=== PATIENT | male | born 1940 | race Caucasian/White ===

== ENCOUNTER → 2024-01-09 | Emergency (ER) | payer OTHER ==
[~2024-01-09] MED LIST: NA CHLORIDE 0.9% 1,000 ML ONE
--- OUTSIDE RECORDS SUMMARY | 2024-01-09 10:51 | XMS REPORT | Clinical Summary ---
Author Name Unknown Organization [facility] [place] Address [address] [place] [address] Care Team Providers Care Concrete Curer Name Role Phone Card, Rashawn Barbour MD Unavailable [phone] John Cardenas MD, Sarabjit Nieto Primary Care Provider [phone] Thierno Booth MD Unavailable Bethel Mayfield MD Unavailable [phone] Darwin Somers MD Unavailable Alberto Broderick MD Unavailable Allergies Active Allergy Reactions Criticality Noted Date Comments Terbinafine 02/22/2018 Patient unsure of reaction Medications Medication Sig Dispensed Refills Start Date End Date Status HUMULIN 70/30 U-100 KWIKPEN 100 unit/mL (70-30) insulin pen Inject 80 Units under the skin daily. Pt will start taking 80units in the morning and 50 units at night per Dr. Cortez (IMPAC) 05/04/19. 1 05/04/2019 Active metFORMIN (GLUCOPHAGE) 500 mg tablet Take 2 tablets (1,000 mg) by mouth twice daily. 0 Active atorvastatin (LIPITOR) 40 mg tablet Take 1 tablet by mouth daily. 0 Active indapamide (LOZOL) 1.25 mg tablet Take 1 tablet (1.25 mg) by mouth daily. 0 Active clotrimazole-betamet h dip-zinc 1-0.05-20 % cmpk Apply 1 application topically to affected area(s) as needed. 0 Active magnesium 250 mg tab Take 1 tablet by mouth 3 (three) times a week Tuesday, Tuesday and Tuesday. 0 Active artificial tears, carboxymethylcellulo se, (REFRESH PLUS) 0.5% ophthalmic solutionIndications: Mass of parotid gland,Renal stone,Elevated cholesterol with elevated triglycerides,Hypert ension,Dyslipidemia Administer 2 drops into the left eye every 2 (two) hours. 70 each 10 04/18/2018 Active cholecalciferol, vitamin D3, 50 mcg (2,000 unit) capsule Take by mouth daily. 0 Active BD ULTRA-FINE ALIX PEN NEEDLE 32 gauge x 5/32" ndle U BID UTD. 3 04/30/2019 Active ferrous sulfate 325 mg (65 mg elemental iron per tablet) tablet Take by mouth daily. 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 Above the surgical site, smaller evaluated with air bubbles is identified. 2. No evidence of left scroll shear operator space involvement. 3. No recurrence at the left parotidectomy site. 4. No adenopathy. 03/09/2018: STRESS TEST: IMPRESSION: 1. No ischemia after exercise stress to an adequate cardiac workload. 2. Calculated left ventricle ejection fraction of 63% 03/09/2018: ECHO: EF 58%. The atrial septum is aneurysmal. Trace MR Other acquired deformity of head 01/11/2019 Overview: Added automatically from request for surgery [id number] Mass of parotid gland 04/03/2018 Overview: Added automatically from request for surgery [id number] Hypertension 03/08/2018 Overview: BP Readings from Last 3 Encounters: 01/11/20 149/84 12/07/19 (!) 164/76 09/07/19 141/78 Dyslipidemia 03/08/2018 Diabetes mellitus Overview: HgbA1c 7.5 06/2018 Renal stone Overview: 2 stones don't remember date Elevated cholesterol with elevated triglycerides Encounters Date Type Department Care Team Description 06/08/2023 11:15 AM CDT Follow-Up MD [facility] in [facility] [address] [place] [address] Sarabjit Lopez Jr., MD 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 7:15 AM CDT Ancillary Procedure Diagnostic Imaging in [facility] [id number] [place] [address] [facility] [address] [place] [address] Lyn Rueda PA 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 Travel after 01/09/2023 Surgical History Surgery Date Site/Laterality Comments COLONOSCOPY 11/14/2011 - 11/13/2012 KNEE SURGERY 11/14/2007 - 11/13/2008 Right arthroscopic EXTRACORPOREAL SHOCK WAVE LITHOTRIPSY 1990s NV EXC PRTD DAVID/PRTD GLND LAT DSJ&PRSRV FACIAL NR 04/17/2018 Neck/Left Procedure: EXCISION OF LATERAL LOBE OF PAROTID GLAND WITH DISSECTION AND PRESERVATION OF FACIAL NERVE; Surgeon: Sarabjit Lopez Jr., MD; Location: MAIN OR; Service: [facility] - HEAD & NECK SURGERY NV REPAIR BROW PTOSIS 05/07/2019 Forehead/Left Procedure: REPAIR OF BROW PTOSIS (SUPRACILIARY, MID-FOREHEAD OR CORONAL APPROACH); Surgeon: Bethel Mayfield MD; Location: MAIN OR; Service: OPHTHALMOLOGY Medical devices from this surgery are in the Medical Devices section. NV CANTHOPLASTY 05/07/2019 Eyelid/Left Procedure: RECONSTRUCTION OF CANTHUS; Surgeon: Bethel Mayfield MD; Location: MAIN OR; Service: OPHTHALMOLOGY Medical devices from this surgery are in the Medical Devices section. NV CORRECTION LID RETRACTION 05/07/2019 Eyelid/Left Procedure: CORRECTION OF LID RETRACTION; Surgeon: Bethel Mayfield MD; Location: MAIN OR; Service: OPHTHALMOLOGY Medical devices from this surgery are in the Medical Devices section. NV CONSTJ INTERMARGIN ADHES/TARSORRH/CANTHORRHAPY 05/07/2019 Eyelid/Left Procedure: CONSTRUCTION OF INTERMARGINAL ADHESIONS, MEDIAN TARSORRHAPHY, OR CANTHORRHAPHY;; Surgeon: Bethel Mayfield MD; Location: MAIN OR; Service: OPHTHALMOLOGY Medical devices from this surgery are in the Medical Devices section. NV GRAFT FACIAL NERVE PARALYSIS FREE FASCIAL GRAFT 05/07/2019 Thigh/Right Procedure: FASCIAL GRAFT; Surgeon: Darwin Somers MD; Location: MAIN OR; Service: PLS - PLASTIC SURGERY Medical devices from this surgery are in the Medical Devices section. NV DEBRIDEMENT OPEN WOUND FIRST 20 SQ CM/< 08/10/2019 Face/Left Procedure: I&D OF WOUND; Surgeon: Darwin Somers MD; Location: MAIN OR; Service: PLS - PLASTIC SURGERY NV REPAIR COMPLEX F/C/C/M/N/AX/G/H/F 1.1-2.5 CM 08/13/2019 Face/Left Procedure: COMPLEX REPAIR OF CHEEK(S) x3 (9cm in total); Surgeon: Darwin Somers MD; Location: MAIN OR; Service: PLS - PLASTIC SURGERY NV CORRJ LAGOPHTHALMOS IMPLTJ UPR EYELID LID LOAD 01/14/2020 Eyelid/Left Procedure: CORRECTION OF LAGOPHTHALMOS WITH IMPLANTATION OF UPPER EYELID LID LOAD; Surgeon: Bethel Mayfield MD; Location: MAIN OR; Service: OPHTHALMOLOGY Medical devices from this surgery are in the Medical Devices section. Medical History Medical History Date Comments Renal stone 2 stones don't r emember date Diabetes mellitus 1990s pt reports micheal t insulin was started about 10-12 yrs ago. pt reports that AM glc usually 80s-150, before dinner in 110-120s Eczema 2000+- Hyperlipidemia 2002 Hypertension 2002 pt does not chec k BP Murmur 2012 Cancer Family History Medical History Relation Name Comments -Lymphoma Brother 1 Km liang [facility] Stroke Brother 1 Km liang -Skin (not Melanoma) Brother 2 gene matula Diabetes Brother 2 gene matula Heart disease Brother 2 gene matula arrythmia sp a blation Hypertension Father Coronary artery disease Mother in h er 60s Hypertension Mother Stroke Mother VTE Mother DVTs Bleeding Disorder Neg Hx Glaucoma Neg Hx Macular degeneration Neg Hx Relation Name Status Comments Brother 1 Km liang Brother 2 gene matula Father Mother Social History Tobacco Use Types Packs/Day Years Used Date Smoking Tobacco: Former Cigars Smokeless Tobacco: Former Chew Quit: 11/14/1986 Comments:smoked occassionall y. quit long ago Alcohol Use Standard Drinks/Week Comments No 0 (1 standard drink = 0.6 oz pur e alcohol) Sex and Gender Information Value Date Recorded Sex Assigned at Male 03/24/2019 9:17 AM CDT Gender Identity Male 03/24/2019 9:17 AM CDT Sexual Orientation Straight 03/24/2019 9: 17 AM CDT Job Start Date Occupation Industry Not on file Not on file Not on file Obstetrics History Last Filed Vital Signs Vital Sign Reading Time Taken Comments Blood Pressure 163/75 06/08/2023 9:58 AM CDT Pulse 86 06/08/2023 9:58 AM CDT Temperature 36.7 C (98.1 F) 06/08/2023 9:58 AM CD T Respiratory Rate 18 06/08/2023 9:58 AM CDT Oxygen Saturation - - Inhaled Oxygen Concentration - - Weight 98.3 kg (216 lb 11.4 oz) 06/08/2023 9:58 AM CDT Height - - Body Mass Index 31.73 09/04/2019 1:32 PM CDT Plan of Treatment Health Maintenance Due Date Last Done Comments COVID-19 Vaccination ( season) 2023 01/10/2021, 12/13/2020 Medical Devices Implanted Type Area Kitchen Runner Device Identifier Shelf Expiration Date Model / Serial / Lot Weight Gold Eyelid Thin 1.2 Ll - [id number] Implanted:Qty : 1 on 01/14/2020 by Bethel Mayfield MD at [facility] NeuroEarEye Left: Eyelid MEDDEV NATALIO 10/08/2022 [id number] / / [id number] Enduragen Collagen Implant Implanted:Qty : 1 on 05/07/2019 by Bethel Mayfield MD at [facility] Tissue Left: Jhony Telensius 07/14/2023 [id number] / / [id number] Procedures Procedure Name Priority Date/Time Associated Diagnosis Comments CT SOFT TISSUE NECK W CONTRAST Routine 06/08/2023 8:47 AM CDT Warthin's tumor of parotid gland POC CREATININE Routine 06/08/2023 7:51 AM CDT after 01/09/2023 Results * CT Soft Tissue Neck with Contrast (06/08/2023 8:47 AM CDT) Anatomical Region Laterality Modality Neck Computed Tomogra phy 06/08/2023 11:5 5 AM CDT Impressions 06/08/2023 12:16 PM CDT 1. Stable treatment changes of the neck includes left sided parotidectomy. No visualized recurrent lesion in the parotidectomy bed. 2. No suspicious masses or lymph nodes. ACTIONABLE ITEMS/RECOMMENDATIONS: None. Narrative 06/08/2023 12:16 PM CDT FULL RESULT: Examination: CT SOFT TISSUE NECK W CONTRAST on 06/08/2023 8:47 AM. 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 TECHNIQUE: CT neck with IV contrast was performed. FINDINGS: There are stable postsurgical changes of left-sided parotidectomy. There are no visualized circumscribed nodules within the parotid bed to suggest recurrent Warthin's tumor or other lesion. Lymph nodes: No cervical lymphadenopathy is present. Other findings: The upper aerodigestive tract is unremarkable. The major salivary glands are unremarkable. A stable 9 mm nodule is seen in the right lobe of the thyroid. Otherwise, the thyroid gland is normal is appearance. The visualized paranasal sinuses are predominantly clear. The cervical arteries and veins are patent. The visualized brain parenchyma is unremarkable. The visualized lung apices are clear. Procedure Note Servando Barlow MD - 06/08/2023 FULL RESULT: Examination: CT SOFT TISSUE NECK W CONTRAST on 06/08/2023 8:47 AM. CLINICAL HISTORY: Warthin's tumor of parotid gland INDICATION: surveillance, hx warthin's tumor of left parotid s/p [id number] COMPARISON: CT the neck 06/09/2022. TECHNIQUE: CT neck with IV contrast was performed. FINDINGS: There are stable postsurgical changes of left-sided parotidectomy. Thereare no visualized circumscribed nodules within the parotid bed to suggestrecurrent Warthin's tumor or other lesion. Lymph nodes: No cervical lymphadenopathy is present. Other findings: The upper aerodigestive tract is unremarkable. The major salivary glands are unremarkable. A stable 9 mm nodule is seen in the right lobe of the thyroid. Otherwise,the thyroid gland is normal is appearance. The visualized paranasal sinuses are predominantly clear. The cervical arteries and veins are patent. The visualized brain parenchyma is unremarkable. The visualized lung apices are clear. IMPRESSION: 1. Stable treatment changes of the neck includes left sided parotidectomy.No visualized recurrent lesion in the parotidectomy bed. 2. No suspicious masses or lymph nodes. ACTIONABLE ITEMS/RECOMMENDATIONS: None. Lyn CARTER IM CT ORDDacia ANN * (ABNORMAL) POC Creatinine (06/08/2023 7:51 AM CDT) POC Crea 1.4(H) 0.6 - 1.3 mg/dL POC [facility] Comment: Medications, especially hydroxyurea or supplements, such as ascorbate, can interfere with test results causing a falsely and significantly higher result than expected. If a problem is suspected with a patient's result, a sample should be sent to the laboratory for confirmatory testing. Method description: The i-STAT is an analyzer used for in vitro quantification of various analytes in whole blood. The device uses a single disposable cartridge which contains microfabricated sensors, a calibration solution, fluidics system, and a waste chamber. Each test cartridge contains chemically sensitive biosensors on a silicon chip that are configured to perform specific tests. The microfabricated sensors measure analyte concentration by an electrochemical assay. POC EGFR 50(L) >=60 mL/min/1. 73 sq. m POC [facility] Comment: The eGFRcr is calculated with the 2020 CKD-EPI creatinine equation using creatinine, patient's age, and sex for adults 18 years of age and older. Other factors, especially muscle mass, may affect accuracy and need to be considered. According to the Kidney Disease: Improving Global Outcomes (KDIGO) CKD Work Group 2012 Clinical Practice Guideline, chronic kidney disease (CKD) is defined as the abnormalities of kidney structure or function, present for more than 3 months, with implications for health. CKD should be classified by cause, GFR category, and albuminuria category. KDIGO guidelines provide the following GFR categories Stage Description GFR mL/min/1.73 m2 G1* Normal or high >= 90 G2* Mildly decreased 60-89 G3a Mildly to moderately decreased 45-59 G3b Moderately to severely decreased 30-44 G4 Severely decreased 15-29 G5 Kidney failure <15 *In the absence of evidence of kidney damage, neither G1 nor G2 fulfill criteria for CKD. POC Clean Dev Yes POC [facility] Performing Lab DI [place] POC [facility] Comment:Diagnostic Imaging W est 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 Advance Directives: Living Will 03/27/2018 Directive to Physici ans and Family or Surrogates-Living Will Latest Code Status on File Code Status Date Activated Date Inactivated Comments Full Code 08/10/2019 2:58 PM 08/15/2019 2:11 PM Code Status History Code Status Date Activated Date Inactivated Comments Full Code 05/07/2019 7:56 PM 05/07/2019 11:58 PM Full Code 05/07/2019 9:21 AM 05/07/2019 5:50 PM Full Code 04/17/2018 12:55 PM 04/18/2018 2:48 PM Care Teams Concrete Curer Relationship Specialty Start Date End Date [place], [place] [id number] [phone] PCP - External Referring Otolaryngology 02/09/18 Sarabjit Lopez Jr., MD [address] [place] [id number] PCP - General Head and Neck Surgery 02/13/18 Thierno Booth MD [address] [address] PCP - External Primary Care Provider Family Practice 02/22/18 Bethel Mayfield MD [address] [place] [id number] Consulting Physician Ophthalmology 05/08/18 Darwin Somers MD [address] [place] [id number] Consulting Physician Plastic and Reconstructive Surgery 08/08/18 Alberto Broderick MD [address] [place] [id number] Consulting Physician Internal Medicine 03/08/18
[2024-01-09 11:25] LABS: Absolute Lymphocytes (CBC) 1.6 K/uL (0.7-4.9); Hematocrit 39.6 % (39.6-49.0); Lymphocytes % 21.9 % (15.3-44.8); MCV 71.7 fL (80-100); MPV 7.6 fL (7.6-11.3); Platelets 231 thou/uL (152-406); RBC Red Blood Cell Count 5.52 M/uL (4.33-5.43)
[2024-01-09 11:41] LABS: Albumin 3.7 g/dL (3.4-5.0); Bilirubin Total 0.8 mg/dL (0.2-1.0); Potassium 4.2 mEq/L (3.5-5.1); Protein, Total 7.2 g/dL (6.4-8.2)
--- NOTE | 2024-01-09 12:24 | RAD REPORT ---
EXAM DESCRIPTION: CTAbdomen Pelvis W Contrast - 01/09/2024 12:05 pm CLINICAL HISTORY: ABD PAIN COMPARISON: No comparisons TECHNIQUE: CT of the abdomen and pelvis was performed. All CT scans are performed using dose optimization technique as appropriate and may include automated exposure control or mA/KV adjustment according to patient size. FINDINGS: Lower chest: Aortic root and aortic valve calcifications. Coronary artery calcifications. Liver: Hepatic steatosis. No focal mass. Biliary: Cholelithiasis. No CT evidence of acute cholecystitis. Stomach: No significant focal abnormality. Duodenum: No significant focal abnormality. Pancreas: Atrophic pancreas but no mass or pancreatic ductal dilatation. Spleen: No significant abnormality. Adrenal: No suspicious lesions. Kidney/ureter: No hydronephrosis. No renal calculi. Too small to characterize and/or benign appearing renal lesions are noted. Retroperitoneum: No retroperitoneal adenopathy. Vascular: No aneurysm. Bowel: Diverticulosis without diverticulitis. No bowel obstruction. No appendicitis.. Peritoneum: No ascites or free air. Bladder: Grossly unremarkable. Reproductive: Prostatomegaly . Bones: No acute fracture. Multilevel degenerative changes are present in the spine. Other: n/a IMPRESSION: No acute intra-abdominal or pelvic finding. Cholelithiasis without CT evidence of acute cholecystitis. No appendicitis.
--- NOTE | 2024-01-09 13:52 | RAD REPORT ---
EXAM DESCRIPTION: US - Abdomen Exam Limited - 01/09/2024 1:17 pm CLINICAL HISTORY: Abdominal pain. COMPARISON: January 09, 2024 CT FINDINGS: Multiple gallstones. Gallbladder wall not thickened The biliary tree is normal caliber. IMPRESSION: Cholelithiasis without evidence cholecystitis
--- NOTE | 2024-01-09 14:00 | EDPHYS ---
Physician Documentation [facility] Name: Garrick Pantoja Age: 83 yrs Sex: Male : 1940 Arrival Date: 01/09/2024 Time: 10:48 Bed 18 Private MD: RADHA Physician Dimas Bermudez HPI: 01/09 11:04 This 83 yrs old Male presents to ER via Unassigned with complaints of Abdominal Pain. sb4 11:04 The patient presents with abdominal pain in the right upper quadrant. Onset: The sb4 symptoms/episode began/occurred 2 week(s) ago. The symptoms do not radiate. Associated signs and symptoms: none. Modifying factors: The symptoms are alleviated by remaining still, the symptoms are aggravated by movement. The patient has not experienced similar symptoms in the past. The patient has not recently seen a physician. worsening RUQ pain x 2 weeks. no known history of gallstones. no reported nausea, vomiting, diarrhea, fever. Historical: - Allergies: 14:13 No Known Allergies; me1 - PMHx: 11:39 diabetes mellitus; Hypertensive disorder; Hypercholesterolemia; nj1 - PSHx: 11:39 plastic surgery on face; tumor removal; nj1 - Immunization history:: Client reports receiving the 2nd dose of the Covid vaccine. - Social history:: Smoking status: Patient denies any tobacco usage or history of. ROS: 11:04 Constitutional: Negative for fever, chills, and weight loss, sb4 11:04 Abdomen/GI: Positive for abdominal pain, 11:04 All other systems are negative, Exam: 11:04 Constitutional: This is a well developed, well nourished patient who is awake, alert, sb4 and in no acute distress. Head/Face: Normocephalic, atraumatic. Eyes: Extra-ocular motions intact. Periorbital areas with no swelling, redness, or edema. ENT: Mucous membranes moist. Cardiovascular: Regular rate and rhythm with a normal S1 and S2. Respiratory: Lungs have equal breath sounds bilaterally, clear to auscultation and percussion. No rales, rhonchi or wheezes noted. No increased work of breathing, no retractions or nasal flaring. Skin: Warm, dry with normal turgor. Normal color with no rashes, no lesions, and no evidence of cellulitis. MS/ Extremity: Pulses equal, no cyanosis. Neurovascular intact. Full, normal range of motion. Neuro: Awake and alert, GCS 15, oriented to person, place, time, and situation. Motor strength 5/5 in all extremities. Sensory grossly intact. 11:04 Abdomen/GI: Inspection: abdomen appears normal, Bowel sounds: normal, Palpation: soft, mild abdominal tenderness, in the right upper quadrant, Vital Signs: 10:57 BP 164 / 72; Pulse 89; Resp 18; Temp 97.8(O); Pulse Ox 97% on R/A; Weight 95.71 kg; nj1 Height 5 ft. 10 in. ; Pain 2/10; 11:00 BP 155 / 76; Pulse 79; Resp 16; Pulse Ox 97% ; me1 12:07 BP 145 / 74; Pulse 76; Resp 16; Pulse Ox 99% on R/A; me1 13:00 BP 140 / 71; Pulse 70; Resp 16; Pulse Ox 99% on R/A; me1 13:00 BP 137 / 68; Pulse 73; Resp 16; Pulse Ox 99% on R/A; me1 10:57 Body Mass Index 30.28 (95.71 kg, 177.8 cm) nj1 10:57 Pain Scale: Adult nj1 MDM: 10:57 Patient medically screened. sb4 11:04 Differential diagnosis: cholecystitis, Cholelithiasis, non-specific abd pain. sb4 13:59 Data reviewed: vital signs, nurses notes, lab test result(s), and as a result, I will sb4 discharge patient. Consideration of Admission/Observation Escalation of care including admission/observation considered. Historians other than the Patient: Spouse/Significant Other: . Care significantly affected by the following chronic conditions: Diabetes, Hypertension. Counseling: I had a detailed discussion with the patient and/or guardian regarding the historical points, exam findings, and any diagnostic results supporting the discharge/admit diagnosis, lab results, radiology results, the need for outpatient follow up, a general surgeon. 01/09 11:04 Order name: CBC with Diff; Complete Time: 11: sb4 01/09 11:04 Order name: CMP; Complete Time: 11: sb4 01/09 11:04 Order name: Lipase; Complete Time: sb4 01/09 11:04 Order name: CT Abd/Pelvis - IV Contrast Only; Complete Time: 12:27 sb4 01/09 12:27 Order name: US Abdomen Limited; Complete Time: 13:53 sb4 01/09 11:04 Order name: IV Saline Lock; Complete Time: 11:15 sb4 01/09 11:04 Order name: Labs collected and sent; Complete Time: 11:15 sb4 Administered Medications: 12:14 Drug: NS 0.9% IV 1000 ml IV at 1 bolus Per protocol; 1000 mL bolus Route: IV; Rate: 1 me1 bolus; Site: right antecubital; 13:59 Follow up: IV Status: Completed infusion me1 Disposition Summary: 01/09/24 14:00 Discharge Ordered Notes: Location: Home sb4 Problem: an ongoing problem sb4 Symptoms: are unchanged sb4 Condition: Stable sb4 Diagnosis - Other cholelithiasis without obstruction sb4 Followup: sb4 - With: Mike Guadarrama MD - When: 2 - 3 days - Reason: Recheck today's complaints, Re-evaluation by your physician Followup: sb4 - With: Edward Ferrer MD - When: As needed - Reason: Recheck today's complaints, Re-evaluation by your physician Followup: sb4 - With: Juanjose Lynn MD - When: As needed - Reason: Recheck today's complaints, Re-evaluation by your physician Followup: sb4 - With: Ck Norton MD - When: As needed - Reason: Recheck today's complaints, Re-evaluation by your physician Discharge Instructions: - Discharge Summary Sheet sb4 - Cholelithiasis sb4 - Gallbladder Eating Plan sb4 Forms: - Thank You Letter sb4 - Patient Portal Instructions sb4 - Leadership Thank You Letter sb4 Signatures: Dispatcher [employer] Michell Ballesteros PA-C PA-C sb4 Shanta Valadez RN RN nj1 Jillian Prince, KAE RN me1 Corrections: (The following items were deleted from the chart) 14:14 14:02 Allergies: Unable to obtain; me1 me1
--- NOTE | 2024-01-09 14:00 | ER ---
Nurse's Notes [facility] Name: Garrick Pantoja Age: 83 yrs Sex: Male : 1940 Arrival Date: 01/09/2024 Time: 10:48 Bed 18 Private MD: Diagnosis: Other cholelithiasis without obstruction Presentation: 01/09 10:57 Chief complaint: Patient states: Right upper abdominal pain for 2 weeks, worse when me1 bending over or twisting. 10:57 Coronavirus screen: Vaccine status: Patient reports receiving the 2nd dose of the covid nj1 vaccine. Ebola Screen: Patient denies travel to an Ebola-affected area in the 21 days before illness onset. Initial Sepsis Screen: Does the patient meet any 2 criteria? No. Patient's initial sepsis screen is negative. Does the patient have a suspected source of infection? No. Patient's initial sepsis screen is negative. Risk Assessment: Do you want to hurt yourself or someone else? Patient reports no desire to harm self or others. Onset of symptoms was December 2023. 10:57 Method Of Arrival: Ambulatory [facility] 10:57 Acuity: SUKHJINDER 3 nj1 Historical: - Allergies: 14:13 No Known Allergies; me1 - PMHx: 11:39 diabetes mellitus; Hypertensive disorder; Hypercholesterolemia; nj1 - PSHx: 11:39 plastic surgery on face; tumor removal; nj1 - Immunization history:: Client reports receiving the 2nd dose of the Covid vaccine. - Social history:: Smoking status: Patient denies any tobacco usage or history of. Screenin:00 [facility] ED Fall Risk Assessment (Adult) History of falling in the last 3 months, me1 including since admission No falls in past 3 months (0 pts) Confusion or Disorientation No (0 pts) Intoxicated or Sedated No (0 pts) Impaired Gait No (0 pts) Mobility Assist Device Used No (0 pt) Altered Elimination No (0 pt) Score/Fall Risk Level 0 - 2 = Low Risk Maintained a safe environment, Provided non-skid footwear, Hourly rounding (assess needs \T\ fall precautionary measures) done. Abuse screen: Denies threats or abuse. Nutritional screening: No deficits noted. Tuberculosis screening: No symptoms or risk factors identified. Assessment: 11:00 General: Appears uncomfortable, well groomed, well developed, well nourished, Behavior me1 is calm, cooperative, appropriate for age, Reports Right upper abdominal pain for 2 weeks, worse when bending over or twisting. Pain: Complains of pain in right upper quadrant Pain does not radiate. Pain currently is 2 out of 10 on a pain scale. Quality of pain is described as dull, Pain began 2 weeks ago Is intermittent. Neuro: Level of Consciousness is awake, alert, obeys commands, Oriented to person, place, time, situation, Appropriate for age. Cardiovascular: Capillary refill < 3 seconds Patient's skin is warm and dry. Respiratory: Airway is patent Trachea midline Respiratory effort is even, unlabored, Respiratory pattern is regular, symmetrical. GI: Abdomen is round non-distended, Bowel sounds present X 4 quads. Abd is soft and non tender X 4 quads. 14:10 General: clarified patient's allergies. Years ago patient took an oral medication that me1 was for a toenail fungus but he does not know the name of it. . Vital Signs: 10:57 BP 164 / 72; Pulse 89; Resp 18; Temp 97.8(O); Pulse Ox 97% on R/A; Weight 95.71 kg; nj1 Height 5 ft. 10 in. ; Pain 2/10; 11:00 BP 155 / 76; Pulse 79; Resp 16; Pulse Ox 97% ; me1 12:07 BP 145 / 74; Pulse 76; Resp 16; Pulse Ox 99% on R/A; me1 13:00 BP 140 / 71; Pulse 70; Resp 16; Pulse Ox 99% on R/A; me1 13:00 BP 137 / 68; Pulse 73; Resp 16; Pulse Ox 99% on R/A; me1 10:57 Body Mass Index 30.28 (95.71 kg, 177.8 cm) nj1 10:57 Pain Scale: Adult [facility] ED Course: 10:54 Patient arrived in ED. im 10:54 Michell Alex PA-C is PHCP. sb4 10:54 Dimas Bermudez MD is Attending Physician. sb4 11:00 No provider procedures requiring assistance completed. me1 11:00 Patient has correct armband on for positive identification. Bed in low position. Call [facility] light in reach. Side rails up X 1. Provided Education on: POC. Verbalized understanding. . 11:05 Eddleman, Jillian, RN is Primary Nurse. me1 11:15 Lipase Sent. me1 11:15 CMP Sent. me1 11:15 CBC with Diff Sent. me1 11:15 Inserted saline lock: 22 gauge in right antecubital area, using aseptic technique. me1 11:39 Triage completed. nj1 11:39 Arm band placed on. nj1 12:07 CT Abd/Pelvis - IV Contrast Only In Process Unspecified. EDMS 13:19 US Abdomen Limited In Process Unspecified. EDMS 14:00 Mike Guadarrama MD is Referral Physician. sb4 14:00 Edward Ferrer MD is Referral Physician. sb4 14:00 Juanjose Lynn MD is Referral Physician. sb4 14:00 Ck Norton MD is Referral Physician. sb4 14:14 IV discontinued, intact, bleeding controlled, No redness/swelling at site. Pressure me1 dressing applied. Administered Medications: 12:14 Drug: NS 0.9% IV 1000 ml IV at 1 bolus Per protocol; 1000 mL bolus Route: IV; Rate: 1 me1 bolus; Site: right antecubital; 13:59 Follow up: IV Status: Completed infusion me1 Medication: 11:00 VIS not applicable for this client. me1 Outcome: 14:00 Discharge ordered by . sb4 14:14 Discharged to home ambulatory, with significant other, me1 14:14 Condition: stable 14:14 Discharge instructions given to patient, significant other, Instructed on discharge instructions, follow up and referral plans. Demonstrated understanding of instructions, follow-up care, 14:15 Patient left the ED. me1 Signatures: Dispatcher [employer] Michell Ballesteros PA-C PALauren sb4 Shanta Valadez, RN RN nj1 Bonnie Kilgore Michelle, RN RN me1 Corrections: (The following items were deleted from the chart) 13:54 10:57 Chief complaint: Patient states: Right upper abdominal pain for 2 weeks, worse me1 when bending over or twisting. nj1 14:14 14:02 Allergies: Unable to obtain; me1 me1
[2024-01-09 14:32] VITALS: BP 137/68; TEMP 97.8; O2SAT 99
== END ==
LOC: ER 10:48
DX: K80.80 Other cholelithiasis without obstruction (principal); E11.9 Type 2 diabetes mellitus without complications; I10 Essential (primary) hypertension
CPT/HCPCS: 85025; 36415; 83690; 80053; 74177; 76705; Q9967; J7030; 96360; 96361; 99284

== ENCOUNTER 2024-01-18 06:59 | Day surgery (SDC) | payer OTHER ==
[2024-01-18 07:53] LABS: Absolute Eosinophils 0.1 K/uL (0-0.5); Absolute Lymphocytes (CBC) 1.7 K/uL (0.7-4.9); Basophils % 0.7 % (0-1.3); Eosinophils % 2.1 % (0-4.4); Hematocrit 37.5 % (39.6-49.0); Hemoglobin 12.4 g/dL (13.6-17.9); Lymphocytes % 24.9 % (15.3-44.8); MCV 71.3 fL (80-100); MPV 7.6 fL (7.6-11.3); Platelets 206 thou/uL (152-406); RBC Red Blood Cell Count 5.26 M/uL (4.33-5.43)
[2024-01-18 08:06] LABS: Albumin 3.6 g/dL (3.4-5.0); Bilirubin Direct 0.2 mg/dL (0-0.2); Bilirubin Indirect, Calculated 0.4 mg/dL (0.2-0.8); Bilirubin Total 0.6 mg/dL (0.2-1.0); Globulin 3.6 g/dL (2.3-3.5); Protein, Total 7.2 g/dL (6.4-8.2)
--- NOTE | 2024-01-18 08:07 | RAD REPORT ---
EXAM DESCRIPTION: RAD - Chest Pa And Lat (2 Views) - 01/18/2024 7:59 am CLINICAL HISTORY: PREOP SDS ROOM 2. Hypertension COMPARISON: Chest Single View dated 02/17/2023; Abdomen Pelvis W Contrast dated 01/09/2024 TECHNIQUE: PA and lateral views of the chest were obtained. FINDINGS: The lungs are clear apart from streaky mild bibasilar medial opacities which may reflect a telectasis, likely stable. Heart size is normal and central vasculature is within normal limits. No p leural effusion or pneumothorax seen. No acute bony finding noted. IMPRESSION: No acute cardiopulmonary process.
[2024-01-18] MEDS ORDERED: KETOROLAC 30 MG/ML INJ ONE (08:08)
[2024-01-18] MEDS ORDERED: LIDOCAINE 1% MPF 5 ML VIAL ONE (08:09)
[2024-01-18] MEDS ORDERED: ONDANSETRON 4 MG/2 ML VIAL ONE (08:09)
[2024-01-18] MEDS ORDERED: ROCURONIUM 50 MG/5 ML VIAL IV ONE (08:09)
[2024-01-18] MEDS ORDERED: FENTANYL CITR 100 MCG/2 ML ONE (08:09)
[2024-01-18] MEDS ORDERED: propofoL 200 MG/20 ML VIAL IV ONE (08:09)
[2024-01-18] MEDS: NA CHLORIDE 0.9% 1,000 ML ONE (08:57)
[2024-01-18] MEDS: CEFOXITIN SODIUM 1 GM/VIAL ONE (10:20)
--- NOTE | 2024-01-18 10:49 | P.BOP ---
Preoperative diagnosis: symptomatic cholelithiasis Postoperative diagnosis: same, umbilical hernia Primary procedure: 1. Laparoscopic cholecystectomy Secondary procedure: 2. Open repair of umbilical hernia Estimated blood loss: <10cc Specimen: gb, hernia sac Findings: as above Anesthesia: General Complications: None Transferred to: Recovery Room Condition: Good
[2024-01-18] MEDS: CODEINE 30MG/APAP 300MG TAB ONE (12:15)
[2024-01-18 15:06] VITALS: BP 108/61; TEMP 96.7; O2SAT 97
--- NOTE | 2024-01-18 19:50 | DS ---
Date of Discharge: 01/18/2024 Diagnoses: Symptomatic cholelithiasis, umbilical hernia. Procedures: Laparoscopic cholecystectomy, open repair of umbilical hernia. Disposition: Home. Activity: As tolerated. No heavy lifting. Followup: Follow up in my office in 1 week, call for an appointment at [phone]. Keep area dry for 48 hours, then may shower. Keep the dressings intact. NATALIE/AMY Voice ID: [id number] Report ID: [id number]
--- NOTE | 2024-01-18 19:56 | OP ---
Date of Procedure: 01/18/2024 Surgeon: Juanjose Lynn MD Preoperative Diagnosis: Symptomatic cholelithiasis. Postoperative Diagnoses: Symptomatic cholelithiasis, umbilical hernia. Procedures: Laparoscopic cholecystectomy, open repair of umbilical hernia. Estimated Blood Loss: Less than 10 cc. Specimens: Gallbladder, hernia sac. Anesthesia: General plus local. Finding: As above. Indications: This is a case of an 83-year-old patient who comes to us with above diagnosis. Fully e xplained the benefits, alternatives, and risks of laparoscopic possible open cholecystectomy which in clude, but not limited to infection, bleeding, damage to adjacent structures, anesthesia complication , choledocholithiasis, bile leak, pancreatitis, AK, and even . He also understands this may not relieve symptoms. He might need more than one surgical intervention. He understood, signed a conse nt. Description Of Procedure: The patient brought to the operating room, placed in supine position. Ane sthesia was done without complication. Abdominal area was prepped and draped in the usual sterile fa shion. Marcaine 0.5% was injected for local anesthetic followed by sharp incision of the skin and im mediately, we noticed the patient to have an umbilical hernia, so the umbilical sac was removed from umbilical skin. The umbilical was removed. Content was reduced back into the abdominal c avity after fully inspected and found to be viable. Fascial edges were cleaned. We placed Vicryl #1 inside the fascia and removed the hernia sac and sent it to the pathologist. After that, we put a H asson trocar in and pneumoperitoneum was obtained. I placed 3 more trocars, 5 mm each one of them, i n the epigastric and right upper quadrant area under direct visualization. This allowed me to put a grasper in the fundus of the gallbladder and another grasper in the infundibulum, retracting the gall bladder in the inferolateral fashion exposing the triangle of Calot, and obtaining critical view. Cy stic duct and cystic artery were clearly isolated freed circumferentially and a connection between th ose and the gallbladder was clearly identified. I proceeded to ligate those by using at least 3 clip s proximal, 1 clip distal, ligation in middle. Same was done with the cystic artery. No bile leak, no bleeding. The gallbladder was removed from liver using Bovie cauterizer and removed from abdomina l cavity using an EndoCatch through the umbilical incision. The area was inspected once again, no bi le leak, no bleeding. At that moment, I proceeded to remove the trocars under direct vision. Deflat ed the pneumoperitoneum. Closed the umbilical hernia with #1 Vicryl. Irrigated subcutaneous tissue, closed that with 3-0 chromic and skin with christina. Sponge count and instrument count correct. Roxane ent tolerated the procedure well. Patient sent to Recovery in stable condition. NATALIE/AMY Voice ID: [id number] Report ID: [id number]
--- NOTE | 2024-01-19 14:18 | EKG ---
Test Date: 2024-01-18 Test Time: 09:11:02 Branch General Manager: BURKE MEASUREMENT RESULTS: Intervals: Rate: 79 OH: 252 QRSD: 160 QT: 412 QTc: 472 [place]: P: 41 OH: 252 QRS: -75 T: 46 INTERPRETIVE STATEMENTS: Sinus rhythm with 1st degree AV block Right bundle branch block Left anterior fascicular block Bifascicular block Anterior infarct, age undetermined Abnormal ECG Compared to ECG 02/17/2023 11:39:23 Left anterior fascicular block now present Bifascicular block now present Myocardial infarct finding now present Left-axis deviation no longer present Electronically Signed On 01-19-24 14:13:49 MANAGER HEART by Gonzalez Barrett
== END 2024-01-18 12:48 | disposition home or self-care (01) ==
LOC: OR 06:59
PROVIDERS: ATTEND Surgery
PROC: 0FT44ZZ Resection of Gallbladder, Percutaneous Endoscopic Approach (ICD-10-PCS; 2024-01-18)
PROC: 0WQF0ZZ Repair Abdominal Wall, Open Approach (ICD-10-PCS; principal; 2024-01-18 09:30)
DX: K80.10 Calculus of gallbladder with chronic cholecystitis without obstruction (principal); K42.9 Umbilical hernia without obstruction or gangrene; I10 Essential (primary) hypertension; E11.9 Type 2 diabetes mellitus without complications
CPT/HCPCS: 49591; 47562; 93005; 85025; 80048; 36415; 82947 ×2; 80076; 88302; 88304; 83690; 71046; J2704; J2001; J3010; J0694; J2405; J7030

== ENCOUNTER 2024-02-10 07:00 | Emergency (ER) | payer OTHER ==
--- OUTSIDE RECORDS SUMMARY | 2024-02-10 07:03 | XMS REPORT | Clinical Summary ---
Author Name Unknown Organization [facility] Address [address] [place] [address] Care Team Providers Care Social Services Counselor Name Role Phone Card, Rashawn Barbour MD Unavailable [phone] John Cardenas MD, Sarabjit Nieto Primary Care Provider [phone] Thierno Booth MD Unavailable Bethel Mayfield MD Unavailable [phone] Darwin Somers MD Unavailable Alberto Broderick [...] Overview: Added automatically from request for surgery [id number] Acquired deformity of head 08/10/2019 Overview: Added automatically from request for surgery [id number] Cancer 08/10/2019 Overview: Added automatically from request for surgery 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 RBBB and LAFB as before 08/12/2019: CT NECK: IMPRESSION: 1. Above the surgical site, smaller evaluated with air bubbles is identified. 2. No evidence of left manager unit space involvement. 3. No recurrence at the left parotidectomy site. 4. No adenopathy. 03/09/2018: STRESS TEST: IMPRESSION: 1. No ischemia after exercise stress to an adequate cardiac workload. 2. Calculated left ventricle ejection fraction of 63% 03/09/2018: ECHO: EF 58%. The atrial septum is aneurysmal. Trace MR Other acquired deformity of head 01/11/2019 Overview: Added automatically from request for surgery [id number] Mass of parotid gland 04/03/2018 Overview: Added automatically from request for surgery [id number] Hypertension 03/08/2018 Overview: BP Readings from Last 3 Encounters: 01/11/20 149/84 12/07/19 (!) 164/76 09/07/19 141/78 Dyslipidemia 03/08/2018 Diabetes mellitus Overview: HgbA1c 7.5 06/2018 Renal stone Overview: 2 stones don't remember date Elevated cholesterol with elevated triglycerides Encounters Date Type Department Care Team Description 06/08/2023 11:15 AM CDT Follow-Up MD B[facility] in [place] - Head & Neck Surgery [address] [place] [address] Sraabjit Lopez Jr., MD 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 7:15 AM CDT Ancillary Procedure Diagnostic Imaging in [facility] [id number] [place] [address] Cross[address] [facility] [address] [place] [address] Lyn Rueda PA 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 Travel after 02/10/2023 Surgical History Surgery Date Site/Laterality Comments COLONOSCOPY 11/14/2011 - 11/13/2012 KNEE SURGERY 11/14/2007 - 11/13/2008 Right arthroscopic EXTRACORPOREAL SHOCK WAVE LITHOTRIPSY 1990s IA EXC PRTD DAVID/PRTD GLND LAT DSJ&PRSRV FACIAL NR 04/17/2018 Neck/Left Procedure: EXCISION OF LATERAL LOBE OF PAROTID GLAND WITH DISSECTION AND PRESERVATION OF FACIAL NERVE; Surgeon: Sarabjit Lopez Jr., MD; Location: MAIN OR; Service: [facility] - HEAD & NECK SURGERY IA REPAIR BROW PTOSIS 05/07/2019 Forehead/Left Procedure: REPAIR OF BROW PTOSIS (SUPRACILIARY, MID-FOREHEAD OR CORONAL APPROACH); Surgeon: Bethel Mayfield MD; Location: MAIN OR; Service: OPHTHALMOLOGY Medical devices from this surgery are in the Medical Devices section. IA CANTHOPLASTY 05/07/2019 Eyelid/Left Procedure: RECONSTRUCTION OF CANTHUS; Surgeon: Bethel Mayfield MD; Location: MAIN OR; Service: OPHTHALMOLOGY Medical devices from this surgery are in the Medical Devices section. IA CORRECTION LID RETRACTION 05/07/2019 Eyelid/Left Procedure: CORRECTION OF LID RETRACTION; Surgeon: Bethel Mayfield MD; Location: MAIN OR; Service: OPHTHALMOLOGY Medical devices from this surgery are in the Medical Devices section. IA CONSTJ INTERMARGIN ADHES/TARSORRH/CANTHORRHAPY 05/07/2019 Eyelid/Left Procedure: CONSTRUCTION OF INTERMARGINAL ADHESIONS, MEDIAN TARSORRHAPHY, OR CANTHORRHAPHY;; Surgeon: Bethel Mayfield MD; Location: MAIN OR; Service: OPHTHALMOLOGY Medical devices from this surgery are in the Medical Devices section. IA GRAFT FACIAL NERVE PARALYSIS FREE FASCIAL GRAFT 05/07/2019 Thigh/Right Procedure: FASCIAL GRAFT; Surgeon: Darwin Somers MD; Location: MAIN OR; Service: PLS - PLASTIC SURGERY Medical devices from this surgery are in the Medical Devices section. IA DEBRIDEMENT OPEN WOUND FIRST 20 SQ CM/< 08/10/2019 Face/Left Procedure: I&D OF WOUND; Surgeon: Darwin Somers MD; Location: MAIN OR; Service: PLS - PLASTIC SURGERY IA REPAIR COMPLEX F/C/C/M/N/AX/G/H/F 1.1-2.5 CM 08/13/2019 Face/Left Procedure: COMPLEX REPAIR OF CHEEK(S) x3 (9cm in total); Surgeon: Darwin Somers MD; Location: MAIN OR; Service: PLS - PLASTIC SURGERY IA CORRJ LAGOPHTHALMOS [id number] UPR EYELID LID LOAD [...] Maintenance Due Date Last Done Comments COVID-19 Vaccine ( season) 2023, 12/13/2020 Influenza Vaccine 2023 09/28/2017 Medical Devices Implanted Type Area Quarter Inspector Device Identifier Shelf Expiration Date Model / Serial / Lot Weight Gold Eyelid Thin 1.2 Ll - [id number] Implanted:Qty : 1 on 01/14/2020 by Bethel Mayfield MD at [facility] Left: Eyelid [employer] NATALIO 10/08/2022 [id number] / / [id number] [employer] Collagen Implant Implanted:Qty : 1 on 05/07/2019 by Bethel Mayfield MD at [facility] Tissue Left: [employer] 07/14/2023 [id number] / / [id number] Procedures Procedure Name Priority Date/Time Associated Diagnosis Comments CT SOFT TISSUE NECK W CONTRAST Routine 06/08/2023 8:47 AM CDT Warthin's tumor of parotid gland POC CREATININE Routine 06/08/2023 7:51 AM CDT after 02/10/2023 Results * CT Soft Tissue Neck with [...] hx warthin's tumor of left parotid s/p [id number] COMPARISON: CT the neck 06/09/2022. TECHNIQUE: CT [...] lymph nodes. ACTIONABLE ITEMS/RECOMMENDATIONS: None. Lyn CARTER IMG CT ORDE SETH * (ABNORMAL) POC Creatinine (06/08/2023 7:51 AM [...] Clean Dev Yes POC TELCOR Performing Lab [facility] POC TELCOR Comment:Diagnostic Imaging W est [facility], [address] [place] [address]; Point of Care Money Room Supervisor: Catarina Alvarez MD Blood 06/08/2023 7:51 AM CDT 06/08/2023 7:51 AM CDT Lyn CARTER POCT ORDERA BLES - DEVICE POC TELCOR Unless otherwise noted, all lab tests performed by: Division of Pathology and Laboratory Medicine [address] [place] [address] after 02/10/2023 Advance Directives Documents on File Type Date Recorded Patient Special Procedure Tech Expl anation Advance Directives: Living Will 03/27/2018 [...] 12:55 PM 04/18/2018 2:48 PM Care Teams Social Services Counselor Relationship Specialty Start Date End Date [place] [address] [phone] PCP - External Referring Otolaryngology 02/09/18 Sarabjit Lopez Jr., MD [address] [place] [id number] PCP - General Head and Neck Surgery 02/13/18 Thierno Booth MD [address] [place] [id number] PCP - External Primary Care Provider Family Practice 02/22/18 Bethel Mayfield MD [address] [place] [id number] Consulting Physician Ophthalmology 05/08/18 Darwin Somers MD [address] [place] [id number] Consulting Physician Plastic and Reconstructive Surgery 08/08/18 Alberto Broderick MD [address] [place] [address] Consulting Physician Internal Medicine 03/08/18
--- NOTE | 2024-02-10 07:19 | EDPHYS ---
Physician Documentation [facility] Name: Garrick Pantoja Age: 83 yrs Sex: Male : 1940 Arrival Date: 02/10/2024 Time: 07:00 Bed 14 Private MD: ED Physician Arturo Saxena HPI: 02/09 07:13 This 83 yrs old Male presents to ER via Unassigned with complaints of Syncope. ms3 07:13 83-year-old male with past medical history of hypertension presents to the emergency ms3 department for syncopal episode. Patient states at 2 AM he began passing out. Patient states his syncopal episodes last a few seconds. Patient endorses not feeling well and shortness of breath. Patient denies nausea or vomiting.. Historical: - Allergies: 07:05 No Known Allergies; rs5 - Home Meds: 11:17 metformin 500 mg Oral tablet [Active]; Humulin 70/30 U-100 Insulin 100 unit/mL (70-30) rs5 Sub-Q suspension [Active]; indapamide 1.25 mg oral tablet [Active]; Iron CR Oral [Active]; benazepril 40 mg oral tablet [Active]; Vitamin D Oral [Active]; magnesium oxide 250 mg magnesium Oral tablet [Active]; fluticasone propionate 0.05 % topical cream [Active]; rosuvastatin 10 mg oral tablet [Active]; aspirin 81 mg Oral capsule [Active]; - PMHx: 07:05 diabetes mellitus; Hypercholesterolemia; Hypertensive disorder; rs5 - PSHx: 07:05 plastic surgery on face; tumor removal; rs5 - Immunization history:: Adult Immunizations up to date. - Social history:: Smoking status: Patient denies any tobacco usage or history of. ROS: 07:13 Cardiovascular: Negative for chest pain, and palpitations. ms3 07:13 Abdomen/GI: Negative for abdominal pain, nausea, vomiting, diarrhea, and constipation, Skin: Negative for injury, rash, and discoloration, 07:13 Constitutional: Positive for Does not feel well, 07:13 Respiratory: Positive for shortness of breath, Exam: 07:13 Constitutional: This is a well developed, well nourished patient who is awake, alert, ms3 and in no acute distress. Head/Face: Normocephalic, atraumatic. Chest/axilla: Normal chest wall appearance and motion. Nontender with no deformity. Abdomen/GI: Soft, non-tender, with normal bowel sounds. No distension or tympany. No guarding or rebound. No evidence of tenderness throughout. Skin: Warm, dry with normal turgor. Normal color with no rashes, no lesions, and no evidence of cellulitis. MS/ Extremity: Pulses equal, no cyanosis. Neurovascular intact. Full, normal range of motion. 07:13 Cardiovascular: Rate: bradycardic, Rhythm: regular, Pulses: no pulse deficits are appreciated, 07:13 ECG was reviewed by the Attending Physician. 08:55 ECG was reviewed by the Attending Physician. ms3 Vital Signs: 07:05 BP 153 / 53; Pulse 38; Resp 18; Temp 97.5(O); Pulse Ox 99% on R/A; Weight 92.99 kg; oe Height 5 ft. 10 in. ; 08:09 BP 131 / 84; Pulse 37; Resp 18; Pulse Ox 99% on R/A; rs5 10:05 BP 126 / 64; Pulse 88; Resp 18; Pulse Ox 99% on R/A; rs5 11:22 BP 127 / 71; Pulse 89; Resp 19; Pulse Ox 99% on R/A; rs5 11:54 BP 148 / 75; Pulse 98; Resp 18; Pulse Ox 99% ; rs5 07:05 Body Mass Index 29.41 (92.99 kg, 177.8 cm) oe MDM: 07:18 Patient medically screened. ms3 08:13 Differential Diagnosis: cardiac arrhythmia, idiopathic syncope, Hyperkalemia. Data ms3 reviewed: vital signs, nurses notes, lab test result(s), EKG, radiologic studies, and as a result, I will transfer patient. Consideration of Admission/Observation Will transfer for EP. I considered the following discharge prescriptions or medication management in the emergency department Medications were administered in the Emergency Department. See MAR. Independent interpretation of the following test(s) in the Emergency Department EKG: See my EKG interpretation above X-Ray: My interpretation is CXR image reviewed by me does not show PNA, PTX, enlarged mediastinum. Historians other than the Patient: Spouse/Significant Other: Patient's . Care significantly affected by the following chronic conditions: Diabetes, Hypertension, HLD. Counseling: I had a detailed discussion with the patient and/or guardian regarding the historical points, exam findings, and any diagnostic results supporting the discharge/admit diagnosis, lab results, radiology results, the need to transfer to another facility, for higher level of care, [facility] does not immediately have the required specialist. 09:56 Management of patient was discussed with the following: Housekeeper Child Care Dr Joseph. ED ms3 course: Discussed case with Dr Joseph and she accepts patient to [facility].. 02/09 07:13 Order name: Basic Metabolic Panel; Complete Time: 08:01 ms3 02/09 07:13 Order name: CBC with Diff; Complete Time: 08:01 ms3 02/09 07:13 Order name: Magnesium; Complete Time: 08:01 ms3 02/09 07:13 Order name: Troponin HS; Complete Time: 08:01 ms3 02/09 07:13 Order name: XRAY Chest (1 view); Complete Time: 08:12 ms3 02/09 07:13 Order name: EKG; Complete Time: 07:13 ms3 02/09 07:13 Order name: Cardiac monitoring; Complete Time: 07:21 ms3 02/09 07:13 Order name: EKG - Nurse/Tech; Complete Time: 07:21 ms3 02/09 07:13 Order name: IV Saline Lock; Complete Time: 07:21 ms3 02/09 07:13 Order name: Labs collected and sent; Complete Time: 07:21 ms3 02/09 07:13 Order name: O2 Per Protocol; Complete Time: 07:21 ms3 02/09 07:13 Order name: O2 Sat Monitoring; Complete Time: 07:21 ms3 EC:13 Rate is 37 beats/min. Rhythm is regular. Left axis deviation noted. QRS interval is ms3 prolonged. Clinical impression: 3rd degree heart block. Interpreted by me. Reviewed by me. 08:55 Rate is 86 beats/min. Rhythm is regular. Left axis deviation noted. FL interval is ms3 prolonged. QRS interval is normal. Clinical impression: 1st degree heart block. Interpreted by me. Reviewed by me. Administered Medications: 09:30 Drug: Magnesium Sulfate IVPB 1 grams IVPB once over 1 hrs Route: IVPB; Infused Over: 1 rs5 hrs; Site: left antecubital; 09:45 Follow up: Response: No adverse reaction rs5 10:20 Follow up: IV Status: Completed infusion rs5 Disposition Summary: 02/10/24 07:18 Transfer Ordered Notes: Transfer Location: [facility] ms3 Reason: Higher level of care ms3 Condition: Stable ms3 Problem: new ms3 Symptoms: are unchanged ms3 Accepting Physician: (02/10/24 12:10) rs5 Diagnosis - Third Degree Heart Block ms3 - Syncope ms3 - Hypomagnesemia ms3 Forms: - Medication Reconciliation Form ms3 - SBAR form ms3 Critical care time excluding procedures: 09:56 Critical care time: Bedside Care: 35 minutes, Consultation: 5 minutes, Family ms3 Intervention: 5 minutes. Total time: 45 minutes Signatures: Dispatcher [employer] Arturo Fish, DO ms3 Nikolay Louis RN RN rs5 Corrections: (The following items were deleted from the chart) 09:21 07:18 ms3 ms3 12:10 09:21 ms3 rs5
--- NOTE | 2024-02-10 07:19 | ER ---
Nurse's Notes [facility] Name: Garrick Pantoja Age: 83 yrs Sex: Male : 1940 Arrival Date: 02/10/2024 Time: 07:00 Bed 14 Private MD: Diagnosis: Third Degree Heart Block;Syncope;Hypomagnesemia Presentation: 02/09 07:05 Chief complaint: Patient states: "I've been feeling a little bit lightheaded recently rs5 and I've been passing out twice this morning". 07:05 Coronavirus screen: At this time, the client does not indicate any symptoms associated rs5 with coronavirus-19. Ebola Screen: No symptoms or risks identified at this time. Initial Sepsis Screen: Does the patient meet any 2 criteria? No. Patient's initial sepsis screen is negative. Does the patient have a suspected source of infection? No. Patient's initial sepsis screen is negative. Risk Assessment: Do you want to hurt yourself or someone else? Patient reports no desire to harm self or others. Onset of symptoms was February 10, 2024. 07:05 Method Of Arrival: Wheelchair rs5 07:05 Acuity: SUKHJINDER 2 rs5 Triage Assessment: 07:05 General: Appears in no apparent distress. comfortable, Behavior is calm, cooperative. rs5 Pain: Denies pain. Neuro: Level of Consciousness is awake, alert, obeys commands, Oriented to person, place, time, situation, Reports "I feel a little lightheaded but not a whole lot. I'm okay right now". Historical: - Allergies: 07:05 No Known Allergies; rs5 - Home Meds: 11:17 metformin 500 mg Oral tablet [Active]; Humulin 70/30 U-100 Insulin 100 unit/mL (70-30) rs5 Sub-Q suspension [Active]; indapamide 1.25 mg oral tablet [Active]; Iron CR Oral [Active]; benazepril 40 mg oral tablet [Active]; Vitamin D Oral [Active]; magnesium oxide 250 mg magnesium Oral tablet [Active]; fluticasone propionate 0.05 % topical cream [Active]; rosuvastatin 10 mg oral tablet [Active]; aspirin 81 mg Oral capsule [Active]; - PMHx: 07:05 diabetes mellitus; Hypercholesterolemia; Hypertensive disorder; rs5 - PSHx: 07:05 plastic surgery on face; tumor removal; rs5 - Immunization history:: Adult Immunizations up to date. - Social history:: Smoking status: Patient denies any tobacco usage or history of. Screenin:05 [facility] ED Fall Risk Assessment (Adult) History of falling in the last 3 months, rs5 including since admission No falls in past 3 months (0 pts) Confusion or Disorientation No (0 pts) Intoxicated or Sedated No (0 pts) Impaired Gait No (0 pts) Mobility Assist Device Used No (0 pt) Altered Elimination No (0 pt) Score/Fall Risk Level 0 - 2 = Low Risk Oriented to surroundings, Maintained a safe environment. 07:05 Abuse screen: Denies threats or abuse. Nutritional screening: No deficits noted. rs5 Tuberculosis screening: No symptoms or risk factors identified. Assessment: 07:05 General: Appears in no apparent distress. comfortable, Behavior is calm, cooperative. rs5 Pain: Denies pain. Neuro: Level of Consciousness is awake, alert, obeys commands, Oriented to person, place, time, situation, Reports "I feel a little lightheaded but I feel okay. I passed out twice this morning for a few minutes on my sofa". 07:05 Cardiovascular: Rhythm is sinus bradycardia. Respiratory: Respiratory effort is even, rs5 unlabored, Respiratory pattern is regular, symmetrical. GI: Abdomen is round non-distended, Abd is soft and non tender X 4 quads. : No signs and/or symptoms were reported regarding the genitourinary system. EENT: No signs and/or symptoms were reported regarding the EENT system. Derm: Skin is intact, Skin is pink, warm \\T\\ dry. Musculoskeletal: Circulation, motion, and sensation intact. Range of motion: intact in all extremities. 07:41 Reassessment: No changes from previously documented assessment. rs5 09:01 Reassessment: No changes from previously documented assessment. rs5 10:01 Reassessment: Pt had a syncopal episode that lasted 5 seconds in bed with LOC, provider rs5 notified, . 10:02 Reassessment: to bedside for repeat EKG. rs5 10:02 Reassessment: Patient denies pain at this time. Cardiovascular: Denies chest pain, rs5 Rhythm is sinus rhythm with 1st degree heart block. 10:02 Respiratory: Respiratory effort is even, unlabored, Respiratory pattern is regular, rs5 symmetrical. 10:50 Reassessment: Patient and/or family updated on plan of care and expected duration. Pain rs5 level reassessed. Patient is alert, oriented x 3, equal unlabored respirations, skin warm/dry/pink. 11:57 General: Appears in no apparent distress. comfortable, Behavior is calm, cooperative. rs5 Pain: Denies pain. Neuro: Level of Consciousness is awake, alert, obeys commands, Oriented to person, place, time, situation. 12:00 Reassessment: report given to [facility] at bedside, 324 chewable aspirin adm to pt per rs5 MDorders. Vital Signs: 07:05 BP 153 / 53; Pulse 38; Resp 18; Temp 97.5(O); Pulse Ox 99% on R/A; Weight 92.99 kg; oe Height 5 ft. 10 in. ; 08:09 BP 131 / 84; Pulse 37; Resp 18; Pulse Ox 99% on R/A; rs5 10:05 BP 126 / 64; Pulse 88; Resp 18; Pulse Ox 99% on R/A; rs5 11:22 BP 127 / 71; Pulse 89; Resp 19; Pulse Ox 99% on R/A; rs5 11:54 BP 148 / 75; Pulse 98; Resp 18; Pulse Ox 99% ; rs5 07:05 Body Mass Index 29.41 (92.99 kg, 177.8 cm) oe Vitals: 07:06 Cardiac Rhythm Assessment Sinus rhythm W/3rd degreeHB. rs5 08:09 Cardiac Rhythm Assessment Sinus rhythm W/1st degree HB. rs5 10:05 Cardiac Rhythm Assessment Sinus rhythm W/1st degree HB. rs5 11:22 Cardiac Rhythm Assessment Sinus rhythm W/1st degree HB. rs5 11:54 Cardiac Rhythm Assessment Sinus rhythm W/1st degree HB. rs5 ED Course: 07:01 Patient arrived in ED. mr 07:03 Arturo Saxena DO is Attending Physician. ms3 07:05 Patient has correct armband on for positive identification. Placed in gown. Bed in low rs5 position. Call light in reach. Side rails up X2. 07:05 No provider procedures requiring assistance completed. rs5 07:21 Nikolay Louis, KAE is Primary Nurse. rs5 07:37 Triage completed. rs5 08:00 initiated a transfer with Shira from the [facility] Transfer Center/. eb 08:03 XRAY Chest (1 view) In Process Unspecified. EDMS 08:42 Shira from the transfer center called to see if the patient was okay with going to [facility]/ patient is okay with that . transfer center notified. 09:[address] Baum telephone claims representative for [facility] connected with Dr. Saxena for patient eb transfer consultation. 09:[address] Joseph the sealer sander telephone claims representative for [facility] with Dr. Odessa wells for patient transfer consultation. 11:30 administrative approval given by Shira Lim Rn/ patient has been accepted to [facility] ER/ Dr. Mayra Hernandez has accepted the patient in transfer without conference with Dr. Saxena/ report to be called to [phone]. 12:05 Patient transferred, IV remains in place. rs5 Administered Medications: 09:30 Drug: Magnesium Sulfate IVPB 1 grams IVPB once over 1 hrs Route: IVPB; Infused Over: 1 rs5 hrs; Site: left antecubital; 09:45 Follow up: Response: No adverse reaction rs5 10:20 Follow up: IV Status: Completed infusion rs5 Medication: 07:40 VIS not applicable for this client. rs5 Outcome: 07:18 ER care complete, transfer ordered by . ms3 12:05 Transferred by helicopter to [facility], rs5 12:05 Transferred Transfer form completed. X-rays sent w/ patient. 12:05 Condition: stable 12:05 Instructed on the need for transfer, Demonstrated understanding of instructions, 12:10 Patient left the ED. rs5 Signatures: Dispatcher [employer] EDMS Jeanette Aguila, Anil Ma mr ShirleyJayden Elizabeth eb Sims, Marcus, DO DO ms3 Nikolay Louis, RN RN rs5 Corrections: (The following items were deleted from the chart) 07:38 07:05 Chief complaint: Patient states: "I feel dizzy and I've been passing out twice rs5 this morning" rs5 09:27 09:[address] Baum telephone claims representative for [facility] with Dr. Saxena for patient eb transfer consultation. eb 09:28 09:[address] Baum telephone claims representative for [facility] connected with Dr. Saxena for eb patient transfer consultation. eb 11:56 10:02 Cardiovascular: Rhythm is rs5 rs5 11:57 10:02 Cardiovascular: Rhythm is sinus rhythm with 1st degree heart block rs5 rs5 12:00 08:09 Cardiac Rhythm Assessment Sinus rhythm W/3rd degreeHB rs5 rs5
[2024-02-10 07:36] LABS: Absolute Basophils 0.1 K/uL (0-0.5); Absolute Eosinophils 0.2 K/uL (0-0.5); Absolute Lymphocytes (CBC) 2.1 K/uL (0.7-4.9); Absolute Monocytes 0.6 K/uL (0.1-1.3); Absolute Neutrophil 6.1 K/uL (1.8-8.0); Basophils % 0.6 % (0-1.3); Eosinophils % 1.8 % (0-4.4); Hematocrit 36.5 % (39.6-49.0); Lymphocytes % 23.4 % (15.3-44.8); MCH 23.4 pg (27.0-35.0); MPV 7.7 fL (7.6-11.3); Monocytes % 6.7 % (3.3-12.3); Neutrophils % 67.5 % (41.7-73.7); Nucleated Red Blood Cells % 0.1 % (0-0); Platelets 253 thou/uL (152-406); RBC Red Blood Cell Count 5.14 M/uL (4.33-5.43); Red Cell Distribution Width 16.2 % (12.1-15.2)
[2024-02-10 07:54] LABS: Anion Gap 11.1 mEq/L (5.0-15.0); Magnesium 1.4 mg/dL (1.6-2.4); Potassium 4.1 mEq/L (3.5-5.1)
--- NOTE | 2024-02-10 08:06 | RAD REPORT ---
EXAM DESCRIPTION: RAD - Chest Single View - 02/10/2024 8:01 am CLINICAL HISTORY: syncope Chest pain. COMPARISON: Chest Pa And Lat (2 Views) dated 01/18/2024; Chest Single View dated 02/17/2023 FINDINGS: Portable technique limits examination quality. The lungs are grossly clear. The heart is normal in size. No displaced fractures. IMPRESSION: No acute intrathoracic process suspected.
[2024-02-10] MEDS ORDERED: MAGNESIUM SULFATE 1 gm IVPB 1 GM/100 ML BAG IV ONE (09:35)
--- NOTE | 2024-02-10 11:49 | EKG ---
Test Date: 2024-02-10 Test Time: 06:58:42 Occupational Safety Specialist: ODILIA MEASUREMENT RESULTS: Intervals: Rate: 37 [place]: QRSD: 156 QT: 512 QTc: 401 [place]: P: 50 KS: QRS: -72 T: -16 INTERPRETIVE STATEMENTS: Sinus rhythm with complete heart block and Idioventricular rhythm Left axis deviation Right bundle branch block Abnormal ECG Compared to ECG 01/18/2024 09:11:02 AV block, complete (third-degree) now present Left-axis deviation now present First degree AV block no longer present Left anterior fascicular block no longer present Bifascicular block no longer present Myocardial infarct finding no longer present Electronically Signed On 02-10-24 11:48:27 CDT by Gonzalez Barrett
[2024-02-10] MEDS ORDERED: ASPIRIN 81 MG CHEWABLE TABLET ONE (12:01)
[2024-02-10 12:37] VITALS: BP 148/75; TEMP 97.5; O2SAT 99
--- NOTE | 2024-02-13 13:47 | EKG ---
Test Date: 2024-02-10 Test Time: 07:52:26 Bark Fitter: EDWARD MEASUREMENT RESULTS: Intervals: Rate: 86 MN: 246 QRSD: 152 QT: 404 QTc: 483 [place]: P: 33 MN: 246 QRS: -80 T: 46 INTERPRETIVE STATEMENTS: Sinus rhythm with 1st degree AV block Left axis deviation Right bundle branch block Anterior infarct, age undetermined Abnormal ECG Compared to ECG 02/10/2024 06:58:42 First degree AV block now present Myocardial infarct finding now present AV block, complete (third-degree) no longer present Electronically Signed On 02-13-24 13:38:33 CDT by Gonzalez Barrett
== END 2024-02-10 12:10 | disposition short-term general hospital (02) ==
LOC: ER 07:00
DX: I44.2 Atrioventricular block, complete (principal); E83.42 Hypomagnesemia; E11.9 Type 2 diabetes mellitus without complications; I10 Essential (primary) hypertension; Z79.4 Long term (current) use of insulin
CPT/HCPCS: 96365; 93005; 85025; 80048; 36415; 83735; 84484; 71045; 99285; J3475

== ENCOUNTER 2025-09-03 07:22 | Day surgery (SDC) | payer OTHER ==
[2025-08-29 10:12] LABS: Absolute Lymphocytes (CBC) 1.5 K/uL (0.7-4.9); Hematocrit 39.7 % (39.6-49.0); Hemoglobin 12.8 g/dL (13.6-17.9); MCH 22.0 pg (27.0-35.0); MCHC 32.1 g/dL (32.0-36.0); MCV 68.7 fL (80-100); MPV 7.8 fL (7.6-11.3); Nucleated RBC Absolute Count 0.0 (0-0); Nucleated Red Blood Cells % 0.0 % (0-0); RBC Red Blood Cell Count 5.79 M/uL (4.33-5.43); White Blood Count 7.60 thou/uL (4.3-10.9)
[2025-08-29 10:20] LABS: Sqamous Epithelial None Seen /HPF (None Seen); Urine Culture Reflex Order NOT NEEDED; Urine Microscopic Reflex YN ORDER UMIC
--- NOTE | 2025-08-29 10:31 | RAD REPORT ---
Procedure: Chest Pa And Lat (2 Views) HISTORY: Preop for knee surgery COMPARISON: 2023 FINDINGS: The lungs appear clear of acute infiltrate. No significant pleural effusion noted. The heart is normal size.. Pacemaker leads in place IMPRESSION: No acute abnormality is displayed.
[2025-08-29 10:33] LABS: ALT/SGPT 33.0 U/L (16-61); AST/SGOT 16.0 U/L (15-37); Albumin 3.9 g/dL (3.4-5.0); Albumin/Globulin Ratio 1.0 (1.1-1.8); Alkaline Phosphatase 56.0 U/L (45-117); Anion Gap 9.9 mEq/L (5.0-15.0); BUN Blood Urea Nitrogen 26.0 mg/dL (7-18); Globulin 3.9 g/dL (2.3-3.5); Glucose Level 179.0 mg/dL (74-106); Potassium 3.9 mEq/L (3.5-5.1)
[2025-08-29 10:38] LABS: PT Prothrombin Time 12.0 SECONDS (10-13.0); PTT, Activated Partial Thromb 30.3 SECONDS (27.2-37.4); Protime INR 1.06
[2025-08-29 10:56] LABS: Anisocytosis 2+; Blood Morphology Comment NOTED (NOT SEEN); Burr Cells FEW; Microcytosis 2+; Ovalocytes SLIGHT; Poikilocytosis 1+; White Blood Cell Scan OK (OK)
[2025-09-03] MEDS: NA CHLORIDE 0.9% 1,000 ML ONE (07:44)
[2025-09-03] MEDS ORDERED: KETAMINE HCL IN 0.9 % NACL 50 MG/5 ML SYRINGE IV ONE (07:46)
[2025-09-03] MEDS ORDERED: LIDOCAINE 1% MPF 5 ML VIAL ONE (07:46)
[2025-09-03] MEDS ORDERED: FENTANYL CITR 100 MCG/2 ML ONE (07:46)
[2025-09-03] MEDS ORDERED: LIDOCAINE 2% MPF 5 ML VIAL ONE (07:46)
[2025-09-03] MEDS: ACETAMINOPHEN 500 MG TAB ONE (07:55)
[2025-09-03] MEDS: Oxycodone HCl/Acetaminophen 5/325 MG TAB ONE (07:55)
[2025-09-03] MEDS: GABAPENTIN 100 MG CAP ONE (07:55)
[2025-09-03] MEDS: CELECOXIB 100 MG CAPSULE ONE (07:55)
[2025-09-03] MEDS: TRANEXAMIC ACID 1,000 MG/10 ML VIAL IV ONE (08:05)
[2025-09-03] MEDS: BUPIVACAINE 0.25% PF 30 ML VIAL ONE (08:25)
[2025-09-03] MEDS: EPINEPHRINE 1 MG/ML VIAL ONE (08:25)
[2025-09-03] MEDS: MAGNESIUM SULFATE 1 gm IVPB 1 GM/100 ML BAG IV ONE (09:21)
[2025-09-03] MEDS: DEXMEDETOMIDINE HCL 200 MCG/2 ML VIAL ONE (09:21)
[2025-09-03] MEDS: CEFAZOLIN SODIUM 2 GM/VIAL ONE (11:25)
[2025-09-03] MEDS: Ringers Lactate 1,000 ML IV ONE (12:00)
[2025-09-03] MEDS ORDERED: EPHEDRINE SULF 50 MG/ML VIAL ONE (12:21)
[2025-09-03] MEDS ORDERED: DOCUSATE NA 100 MG CAP PO PRN (13:04)
[2025-09-03] MEDS ORDERED: ONDANSETRON 4 MG/2 ML VIAL IV PRN (13:04)
--- NOTE | 2025-09-03 13:04 | P.BOP ---
Preoperative diagnosis: right knee djd Postoperative diagnosis: same Primary procedure: right total knee arthoplasty Estimated blood loss: 100 ccs Anesthesia: General Transferred to: Recovery Room Condition: Good
[2025-09-03] MEDS ORDERED: PROPYLENE GLYCOL OPTH PRN (14:03)
[2025-09-03 15:13] VITALS: BMI 28.3
--- NOTE | 2025-09-03 15:42 | P.CNS ---
Date of Consult: 09/03/25 Reason for Consult: Medical management Requesting Physician: Jesus Manuel Atkins Chief Complaint: Right knee pain History of Present Illness: 85-year-old male with history of insulin-dependent diabetes, hyperlipidemia, hypertension, BPH came to the hospital to have his right knee replaced. He had a knee replacement today and will be observed in the hospital overnight. Hospital service was consulted for medical management of his chronic conditions including his diabetes. Allergies terbinafine Allergy (Mild, Verified 08/29/25 09:18) Itching/Hives/Rash Home Medications: Aspirin 81 mg PO NOON 08/29/25 Benazepril HCl 40 mg PO DAILY AT SUPPER 08/29/25 Cholecalciferol (Vitamin D3) [Vitamin D3] 50 mcg PO DAILY AT SUPPER 08/29/25 Cyanocobalamin [Vitamin B-12] 1,000 mcg PO NOON 08/29/25 Ferrous Sulfate [Iron] 65 mg PO BIDWM 08/29/25 Indapamide [Lozol] 1.25 mg PO DAILY 08/29/25 Insulin NPH Hum/Reg Insulin Hm [Humulin 70/30 Kwikpen] 40 unit SQ BIDWM 08/29/25 Latanoprost Ophth [Xalatan 0.005%*] 1 drop EACH EYE BEDTIME 08/29/25 Metformin ER [Glucophage ER] 1,000 mg PO BIDWM 08/29/25 Propylene Glycol [Systane Complete] 2 drops LEFT EYE PRN PRN 08/29/25 Rosuvastatin [Crestor] 10 mg PO BEDTIME 08/29/25 Tamsulosin HCl 0.4 mg PO NOON 08/29/25 - Past Medical/Surgical History Diabetic: Yes -: HTN -: Gout -: HLD -: DM -: pacemaker -: pacemaker placement -: kidney stone -: right knee arthroscopy -: parotid gland growth removed -: cholecystectomy -: cataracts bilateral -: implant in left eyelid (to help close) - Family History Mother Medical History: Diabetes, Stroke Father Medical History: Other (see notes) Notes: alcoholic - Social History Alcohol use: No CD- Drugs: No Caffeine use: Yes Place of Residence: Home Review of Systems 10-point ROS is otherwise unremarkable Musculoskeletal: Leg Pain Physical Examination Temp Pulse Resp BP Pulse Ox 97.3 F 70 16 120/56 L 96 09/03/25 14:10 09/03/25 14:10 09/03/25 14:10 09/03/25 14:10 09/03/25 07:55 General: Alert, In no apparent distress, Oriented x3 HEENT: Atraumatic, PERRLA, EOMI Neck: Supple, 2+ carotid pulse no bruit, No LAD Respiratory: Clear to auscultation bilaterally, Normal air movement Cardiovascular: Regular rate/rhythm, Normal S1 S2 Gastrointestinal: Normal bowel sounds, No tenderness Musculoskeletal: No tenderness Integumentary: No rashes Neurological: Normal speech, Normal affect Conclusions/Impression: Assessment: 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
[2025-09-03] MEDS: CEFAZOLIN 1 GM in NA CHLORIDE 0.9% 50 ML IVPB SCH (16:56)
[2025-09-03] MEDS: BENAZEPRIL 20 MG TAB PO SCH (16:57)
[2025-09-03] MEDS: INSULIN REGULAR (HUMAN) 100 UNIT/ML SQ SCH (16:57)
[2025-09-03] MEDS: FERROUS SULFATE 325 MG TAB PO SCH (16:57)
[2025-09-03] MEDS: METFORMIN ER 500 MG TAB PO SCH (16:57)
[2025-09-03] MEDS ORDERED: HOME MED 1 EA UNK (Cholecalciferol (Vitamin D3) [Vitamin D3] 50 MCG Capsule) PO SCH (17:00)
[2025-09-03] MEDS ORDERED: BENAZEPRIL HCL 40 MG PO SCH (17:00)
[2025-09-03] MEDS: ROSUVASTATIN 10 MG TAB PO SCH (20:25)
[2025-09-03] MEDS: LATANOPROST 0.005% 2.5ML OPTH *PT OWN MED OPTH SCH (20:27)
[2025-09-03] MEDS ORDERED: LATANOPROST 0.005% 2.5ML OPTH OPTH SCH (21:00)
--- NOTE | 2025-09-03 21:31 | OP ---
Date of Procedure: 09/03/2025 Surgeon: Jesus Manuel Atkins MD Preoperative Diagnosis: Right knee severe arthritic change, unresolved with conservative care and in terfering with ADLs. Postoperative Diagnosis: Right knee severe arthritic change, unresolved with conservative care and i nterfering with ADLs. Procedure: Right total knee arthroplasty using the [employer] system. Estimated Blood Loss: 100 cc. Complications: There are no complications. Indications For Operation: Mr. Pantoja is an 85-year-old gentleman who unfortunately has severe compl aints of pain and arthritic changes in his right knee. This progresses despite conservative manageme nt. He does have clearance and risks, benefits, and alternatives to total knee arthroplasty had been discussed with him. He said he understands things as presented and wishes to proceed. Description Of Procedure: The patient was taken to the operating room. As he previously had a block in the holding area, the general anesthesia was easily obtained by Anesthesia staff. Following this , a well-padded tourniquet was placed on superior right thigh. Right lower extremity was then preppe d and draped in the usual sterile fashion for the procedure. Following this, the leg was then elevat ed and gently exsanguinated using an Mg wrap. Knee was bent and tourniquet was raised. A standard anterior incision was taken down carefully through skin and soft tissue. Meticulous hemostasis being maintained using Bovie electrocautery. This led to appropriate level which was then exploited to ex pose the extensor mechanism and a standard medial parapatellar arthrotomy was then performed with eliza eration of approximately 60 cc of rather normal-appearing synovial fluid. Following this, the anteri or cruciate ligament as well as the medial and lateral menisci were excised as well as some fat pad. With the patella everted, a standard intramedullary alignment guide was then placed. Distal cut was then made. It was then sized, cutting block was used, found mouth of notch to be of appropriate siz e and the remainder of the femoral cuts were made. The PCL was then resected and PCL retractor was t hen placed. The tibia was cut and then sized. After this, the trial femur was then placed and the t rial poly was placed. Knee goes to full extension as well as full flexion. Appeared to be balanced in flexion and extension. The patella was then calipered and cut and sized. Patellar button was cullen иван and it appeared to glide excellently. After this, attention was turned back to the femur and the lugs were drilled. This was followed by removal of the femur and punching of the tibia. All surfac es were then prepped for cementation and they were then sequentially cemented including the tibia and femur. Trial poly was used to place the knee in extension and any unsupported cement was removed. After this, attention was turned to the patella, which was then held in place. This position was hel d until the cement was hardened with removal of any unsupported cement. After cement was hardened, i t was brought through range of motion and the patella appears to glide excellently and the knee appea rs balanced. The trial polyethylene was removed and replaced by a final polyethylene. It clicks int o the baseplate easily. After this, the wound was copiously irrigated. Any unsupported cement was r emoved and knee was brought through range of motion and was found to be in full range of motion and b alance. The extensor mechanism was then repaired. The heavy Ethibond sutures were again irrigated. Skin was closed using Vicryl sutures followed by christina. The patient was placed in a very well-pad ded sterile dressing, awakened, and taken to recovery room in good condition. There were no complica tions. /AMY Voice ID: [id number] Report ID: [id number]
[2025-09-03] MEDS: HYDROCODONE/APAP 7.5/325 MG TAB PO PRN (21:37)
[2025-09-04] MEDS: ENOXAPARIN 30 MG/0.3 ML SQ SCH (06:00)
[2025-09-04 08:00] LABS: Hematocrit 33.3 % (39.6-49.0); Hemoglobin 10.9 g/dL (13.6-17.9)
[2025-09-04] MEDS ORDERED: D50W 25 GM/50 ML SYRINGE IV PRN (08:09)
[2025-09-04] MEDS ORDERED: GLUCAGON 1 MG/VIAL IM PRN (08:09)
[2025-09-04 08:45] VITALS: BP 151/82; TEMP 97.8
[2025-09-04] MEDS: INSULIN 70/30 100 UNITS/ML SQ SCH (08:46)
[2025-09-04] MEDS: VITAMIN D 1000 UNIT TAB PO SCH (08:51)
[2025-09-04] MEDS: INDAPAMIDE 1.25 MG TAB PO SCH (08:51)
[2025-09-04 10:41] VITALS: O2SAT 96
[2025-09-04] MEDS: TAMSULOSIN 0.4 MG SR CAP PO SCH (12:16)
[2025-09-04] MEDS: CYANOCOBALAMIN 1,000 MCG TAB PO SCH (12:16)
== END 2025-09-04 13:04 | disposition home health service (06) ==
LOC: OR 07:22 → 4TH 13:04 → OR 09-04 13:04
PROVIDERS: ATTEND Orthopaedic Surgery
PROC: 0SRC0J9 Replacement of Right Knee Joint with Synthetic Substitute, Cemented, Open Approach (ICD-10-PCS; principal; 2025-09-03 09:45)
DX: M17.11 Unilateral primary osteoarthritis, right knee (principal); M25.561 Pain in right knee; E11.9 Type 2 diabetes mellitus without complications; E78.5 Hyperlipidemia, unspecified; I10 Essential (primary) hypertension; N40.0 Benign prostatic hyperplasia without lower urinary tract symptoms; Z79.4 Long term (current) use of insulin; Z88.8 Allergy status to other drugs, medicaments and biological substances
CPT/HCPCS: 27447; 93005; 85025; 81001; 36415; 85610; 82947 ×4; 88305; 88311; 85730; 80053; 71046; 97116; 97139; 97161; 94010 ×2; J3490; C1776 ×2; J3475; J2704; J1100; J2003 ×2; J3010; J0169; J1815; J7120; J7030; J0690 ×2; 85014; 85018; 97530; J1650